=== PATIENT | female | born 1995 | race Caucasian/White ===

== ENCOUNTER 2016-11-30 09:17 | Emergency (ER) | payer SELFPAY ==
--- NOTE | 2016-11-30 09:22 | EDPHY ---
H & P Time Seen by Provider: 11/30/16 09:22 HPI/ROS: CHIEF COMPLAINT: Right foot and ankle injury HISTORY OF PRESENT ILLNESS: 21-year-old female presents to the emergency department by ambulance after she injured her right foot and ankle stepping off a curb just prior to arrival. She denies any presyncopal symptoms prior to her fall. She is unable to bear weight since this occurred just prior to arrival. She denies hitting her head or losing consciousness. Denies neck or back pain. Denies pain in her right knee or hip. Denies any other trauma or injury. She has had previous ankle sprains to the right ankle. REVIEW OF SYSTEMS: Constitutional: No fever, no chills. Eyes: No double or blurry vision. ENT: No sore throat. Respiratory: No cough, no shortness of breath. Cardiac: No chest pain. Gastrointestinal: No abdominal pain, vomiting or diarrhea. Genitourinary: No dysuria. Musculoskeletal: No neck or back pain. Skin: No rashes. Neurological: No headache. Past Medical/Surgical History: Ankle sprain Social History: Homeless Physical Exam: General Appearance: Alert, no distress. No visible signs of trauma to her head. She is mentating normally and answering questions appropriately. Eyes: Pupils equal and round. Extraocular motions are all intact. ENT: Mouth: Mucous membranes moist. Respiratory: No wheezing, rhonchi, or rales, lungs are clear to auscultation. Cardiovascular: Regular rate and rhythm. Gastrointestinal: Abdomen is soft and nontender, no masses, no rebound or guarding, bowel sounds normal. Neurological: Alert and oriented x 3, cranial nerves II through XII grossly intact Skin: Warm and dry, no rashes. Musculoskeletal: Nontender to palpate along the cervical, thoracic or lumbar spine. Neck is supple. Extremities: Tender with palpation to the lateral aspect of the right ankle overlying the lateral malleolus. She also has some mild pain with palpation to the dorsal lateral aspect of the right foot. No pain with palpation over the base of the 5th metatarsal. No palpable crepitus or other bony abnormalities. Patient is unable to bear weight secondary to pain. She has full dorsi and plantar flexion of the right ankle. Full range of motion of the left lower extremity and upper extremities bilaterally. Psychiatric: Patient is oriented X 3, there is no agitation. Constitutional: Initial Vital Signs Temperature (C) 36.8 C 11/30/16 09:17 Heart Rate 64 11/30/16 09:17 Respiratory Rate 18 11/30/16 09:17 Blood Pressure 114/59 L 11/30/16 09:17 O2 Sat (%) 99 11/30/16 09:17 O2 Delivery Mode Room Air Allergies/Adverse Reactions: Penicillins Allergy (Verified 11/30/16 09:30) Home Medications: Medication Instructions Recorded NK [No Known Home Meds] 11/30/16 Medical Decision Making - Diagnostics Imaging Results: Imaging Impressions Ankle X-Ray 11/30/16 09:22 Impression: Mild soft tissue swelling over the lateral malleolus indicating the soft tissue injury. No evidence for fracture. Right foot, 3 views. History: Pain after injury. Findings: Normal mineralization and alignment. No evidence for acute fracture or dislocation. Accessory ossification is seen in the posterior medial navicular. No evidence for joint narrowing or periarticular erosion. Impression: No evidence for acute osseous abnormality. Foot X-Ray 11/30/16 09:22 Impression: Mild soft tissue swelling over the lateral malleolus indicating the soft tissue injury. No evidence for fracture. Right foot, 3 views. History: Pain after injury. Findings: Normal mineralization and alignment. No evidence for acute fracture or dislocation. Accessory ossification is seen in the posterior medial navicular. No evidence for joint narrowing or periarticular erosion. Impression: No evidence for acute osseous abnormality. Imaging: I viewed and interpreted images myself Procedures: Patient was placed in Velcro ankle stirrup splint and examined post application in good placement with normal [employer]. ED Course/Re-evaluation: X-rays of the right foot and ankle reveal no fractures. This is reviewed by myself the PAC system as well as by the radiologist. Patient was placed in Velcro ankle stirrup splint and given orthopedic referral. Differential Diagnosis: Including but not limited to fracture, dislocation, contusion, sprain Departure - Departure Disposition: Home, Routine, Self-Care Clinical Impression: Right ankle sprain Qualifiers: Encounter type: initial encounter Involved ligament of ankle: unspecified ligament Qualified Code(s): S93.401A - Sprain of unspecified ligament of right ankle, initial encounter Right foot sprain Qualifiers: Encounter type: initial encounter Qualified Code(s): S93.601A - Unspecified sprain of right foot, initial encounter Condition: Good Instructions: Ankle Sprain (ED), Foot Sprain (ED) Additional Instructions: Ibuprofen 600 mg every 8 hours as needed for pain. Ice and elevate to help relieve swelling. Weightbear and activity as tolerated. Velcro ankle stirrup splint as needed for comfort and support. Follow up with orthopedic surgeon in 1 week to recheck. Referrals: Tommy Louie MD [Medical Doctor] - 5-7 days, call for appt. (Orthopedic surgeon on-call)
[2016-11-30 09:29] VITALS: RESP 18; TEMP 98.2
[2016-11-30 10:26] VITALS: BP 129/76; PULSE 65; O2SAT 95
== END 2016-11-30 10:34 | disposition home or self-care (01) ==
DX: S93.601A Unspecified sprain of right foot, initial encounter (principal); S93.401A Sprain of unspecified ligament of right ankle, initial encounter; W18.39XA Other fall on same level, initial encounter
CPT/HCPCS: L4350